=== PATIENT | female | born 1940 | race Caucasian/White ===

== ENCOUNTER → 2021-02-28 | Outpatient (CLI) | payer MEDICARE, OTHER ==
[~2021-02-28] MED LIST: ALPR.25 PO; ATECHL PO; ATOR20 PO; Aspir 8181 MG PO; CLON.5 PO; Hair, Skin & N1 EACH PO; LISI20 PO
== END | disposition home or self-care (01) ==
LOC: LAB 11:17 → LAB SHORT 11:17
DX: C44.311 Basal cell carcinoma of skin of nose (principal); D48.5 Neoplasm of uncertain behavior of skin
CPT/HCPCS: 88305

== ENCOUNTER → 2021-03-21 | Outpatient (CLI) | payer MEDICARE, OTHER | LOC: LAB SHORT 12:27 → LAB 12:27 | DX: C44.629 Squamous cell carcinoma of skin of left upper limb, including shoulder (principal); L57.8 Other skin changes due to chronic exposure to nonionizing radiation | CPT/HCPCS: 88305 ==

== ENCOUNTER → 2021-12-25 | Outpatient (CLI) | payer MEDICARE, OTHER ==
[~2021-12-25] MED LIST changes: +AMLO10 PO; +CALCIUM CIT 311 EAC7 PO; +CLOP75 PO; +ESCI10 PO; +FURO20 PO; +METO25ER PO; +TRAZ50 PO
== END | disposition home or self-care (01) ==
LOC: LAB SHORT 11:20
DX: C44.41 Basal cell carcinoma of skin of scalp and neck (principal)
CPT/HCPCS: 88305

== ENCOUNTER 2022-01-02 08:09 | Day surgery (SDC) | payer MEDICARE, OTHER ==
[~2022-01-02] VITALS: Ht 162.6 cm; Wt 58.7 kg
--- NOTE | 2022-01-02 08:45 | NUR ---
01/02/22 0845 SHARRI TERRY TETRACAINE DROP INSTILLED AT 0842. PLEDGETT INSERTED AT 0844
== END 2022-01-02 10:34 | disposition home or self-care (01) ==
LOC: ORSCSDS 08:09
PROVIDERS: Ophthalmology
PROC: 08RJ3JZ Replacement of Right Lens with Synthetic Substitute, Percutaneous Approach (ICD-10-PCS; principal; 2022-01-02 09:30)
DX: H25.11 Age-related nuclear cataract, right eye (principal); E78.5 Hyperlipidemia, unspecified; I10 Essential (primary) hypertension; Z86.73 Personal history of transient ischemic attack (TIA), and cerebral infarction without residual deficits; Z79.899 Other long term (current) drug therapy
CPT/HCPCS: J2001; J2250; J3010; J3301; J7040; V2632

== ENCOUNTER → 2022-01-30 | Outpatient (CLI) | payer MEDICARE, OTHER | LOC: LAB 14:59 → LAB SHORT 14:59 | DX: L82.1 Other seborrheic keratosis (principal); C44.41 Basal cell carcinoma of skin of scalp and neck | CPT/HCPCS: 88305 ==

== ENCOUNTER 2022-02-27 07:29 | Day surgery (SDC) | payer MEDICARE, OTHER ==
[~2022-02-27] VITALS: Ht 162.6 cm; Wt 58.0 kg
[2022-02-27] MEDS ORDERED: METO25ER PO (08:23)
== END 2022-02-27 09:42 | disposition home or self-care (01) ==
LOC: ORSCSDS 07:29
PROVIDERS: Ophthalmology
PROC: 08RK3JZ Replacement of Left Lens with Synthetic Substitute, Percutaneous Approach (ICD-10-PCS; principal; 2022-02-27 09:00)
DX: H25.12 Age-related nuclear cataract, left eye (principal); I10 Essential (primary) hypertension; F41.9 Anxiety disorder, unspecified; Z86.73 Personal history of transient ischemic attack (TIA), and cerebral infarction without residual deficits; Z79.01 Long term (current) use of anticoagulants; Z79.899 Other long term (current) drug therapy
CPT/HCPCS: J2001; J2250; J3010; J3301; J7040; V2632